=== PATIENT | female | born 1950 | race Two or more races ===

== ENCOUNTER 2018-09-05 14:28 | Inpatient (IN) | payer MEDICARE, MEDICAID ==
[~2018-09-05] VITALS: Ht 165.1 cm; Wt 102.6 kg
[2018-09-05] MEDS ORDERED: ONDANSETRON HCL 4MG/2ML INJ IV STA (15:14)
[2018-09-05] MEDS ORDERED: SODIUM CHLORIDE 0.9% 1,000 ML IV ONE (15:14)
[2018-09-05] MEDS ORDERED: MORPHINE SULFATE 4 MG/ML CPJ (NOT FOR IM USE) IV STA (15:14)
[2018-09-05] MEDS ORDERED: CEFTRIAXONE 1 G PREMIX 50 ML IV ONE (15:15)
[2018-09-05] MEDS ORDERED: SODIUM CHLORIDE 0.9% 1000ML BAG (SEPSIS BOLUS) IV ONE (15:15)
[2018-09-05] MEDS ORDERED: ACETAMINOPHEN 325MG TABLET PO STA (15:15)
[2018-09-05 15:28] LABS: HEMATOCRIT. 39.9 % (36.0-48.0); HEMOGLOBIN. 13.2 g/dL (12.0-16.0); MEAN CORPUSCULAR HEMOGLOBIN 27.9 pg (28.0-32.0); MEAN CORPUSCULAR VOLUME 84.4 fL (81.0-99.0); MEAN PLATELET VOLUME 7.8 fl (7.4-10.4); PLATELET 235 x1000/uL (130-400); RED BLOOD CELL COUNT 4.73 mill/uL (4.2-5.4); RED CELL DISTRIBUTION WIDTH 13.9 % (11.6-14.6)
[2018-09-05 15:33] LABS: PROTHROMBIN TIME 10.6 sec (9.6-11.0)
[2018-09-05 15:34] LABS: CHLORIDE 106 mEq/L (98-107)
[2018-09-05 15:55] LABS: PLATELET ESTIMATE NORMAL
[2018-09-05] MEDS ORDERED: METRONIDAZOLE 500 MG PREMIX 100 ML IV ONE (16:30)
[2018-09-05 16:58] LABS: CLARITY URINE CLEAR (CLEAR); COLOR URINE YELLOW (YELLOW); KETONES URINE TRACE (NEGATIVE); LEUKOCYTE ESTERASE URINE 1+ (NEGATIVE); NITRITE URINE POSITIVE (NEGATIVE); OCCULT BLOOD URINE NEGATIVE (NEGATIVE); PROTEIN URINE TRACE (NEGATIVE); SPECIFIC GRAVITY URINE 1.021 (1.005-1.030)
[2018-09-05] MEDS ORDERED: DIPHENHYDRAMINE 50MG/ML VIAL IV PRN (19:30)
[2018-09-05] MEDS ORDERED: ONDANSETRON HCL 4MG/2ML INJ IV PRN (19:30)
[2018-09-05 20:00] VITALS: BP 138/63
[2018-09-05] MEDS: HYDROMORPHONE HCL/PF 2MG/ML CPJ IV PRN (21:33)
[2018-09-05] MEDS: FAMOTIDINE 20MG/2ML VIAL IV SCH (22:00)
[2018-09-05] MEDS ORDERED: LEVOFLOXACIN 500MG PREMIX 100 ML IV SCH (22:00)
[2018-09-05] MEDS: SODIUM CHLORIDE 0.9% 1,000 ML IV SCH (22:21)
[2018-09-05] MEDS ORDERED: METO100T16 MT (23:00)
[2018-09-05] MEDS ORDERED: AMLO5TAB88 MT (23:00)
[2018-09-05] MEDS ORDERED: LISI-604 MT (23:01)
[2018-09-05] MEDS: LORAZEPAM 2MG/ML CPJ IV PRN (23:59)
[2018-09-06] VITALS: BP 133/67
[2018-09-06 04:00] VITALS: BP 148/47
[2018-09-06] MEDS: HYDROMORPHONE HCL/PF 2MG/ML CPJ IV PRN ×3 (07:12→23:23)
[2018-09-06 08:00] VITALS: BP 110/45
[2018-09-06 08:06] LABS: HEMATOCRIT. 40.5 % (36.0-48.0); HEMOGLOBIN. 13.2 g/dL (12.0-16.0); MEAN CORPUSCULAR HEMOGLOBIN 28.3 pg (28.0-32.0); MEAN CORPUSCULAR VOLUME 86.6 fL (81.0-99.0); MEAN PLATELET VOLUME 8.6 fl (7.4-10.4); PLATELET 222 x1000/uL (130-400); RED BLOOD CELL COUNT 4.68 mill/uL (4.2-5.4); RED CELL DISTRIBUTION WIDTH 14.1 % (11.6-14.6)
[2018-09-06] MEDS: METOPROLOL TARTRATE 25MG TABLET PO SCH ×2 (10:01→21:11)
[2018-09-06] MEDS: FAMOTIDINE 20MG/2ML VIAL IV SCH ×2 (10:01→21:11)
[2018-09-06 12:00] VITALS: BP 109/52
[2018-09-06] MEDS: SODIUM CHLORIDE 0.9% 1,000 ML IV SCH (12:33)
[2018-09-06] MEDS: LORAZEPAM 2MG/ML CPJ IV PRN (12:44)
[2018-09-06 13:08] LABS: PLATELET ESTIMATE NORMAL
[2018-09-06 16:00] VITALS: BP 109/43
[2018-09-06] MEDS: PIPERACILLIN/TAZ 3.375G PREMIX 50 ML IV SCH ×2 (16:47→21:12)
[2018-09-06 20:00] VITALS: BP 115/51
[2018-09-07] VITALS: BP 130/64
[2018-09-07] MEDS: HYDROMORPHONE HCL/PF 2MG/ML CPJ IV PRN ×3 (00:25→20:31)
[2018-09-07 04:00] VITALS: BP 124/53
[2018-09-07] MEDS: PIPERACILLIN/TAZ 3.375G PREMIX 50 ML IV SCH ×4 (04:37→21:55)
[2018-09-07] MEDS: SODIUM CHLORIDE 0.9% 1,000 ML IV SCH (04:58)
[2018-09-07 08:00] VITALS: BP 119/55
[2018-09-07] MEDS: METOPROLOL TARTRATE 25MG TABLET PO SCH ×2 (09:00→22:09)
[2018-09-07] MEDS: FAMOTIDINE 20MG/2ML VIAL IV SCH ×2 (09:10→21:55)
[2018-09-07 10:19] LABS: HEMATOCRIT. 38.1 % (36.0-48.0); HEMOGLOBIN. 12.2 g/dL (12.0-16.0); MEAN CORPUSCULAR HEMOGLOBIN 27.7 pg (28.0-32.0); MEAN CORPUSCULAR VOLUME 86.6 fL (81.0-99.0); MEAN PLATELET VOLUME 8.2 fl (7.4-10.4); PLATELET 239 x1000/uL (130-400); RED BLOOD CELL COUNT 4.39 mill/uL (4.2-5.4); RED CELL DISTRIBUTION WIDTH 14.4 % (11.6-14.6)
[2018-09-07 10:30] LABS: CHLORIDE 112 mEq/L (98-107)
[2018-09-07 13:02] LABS: PLATELET ESTIMATE NORMAL
[2018-09-07] MEDS: ACETAMINOPHEN 325MG TABLET PO PRN (13:45)
[2018-09-07 16:00] VITALS: BP 106/46
[2018-09-07 20:00] VITALS: BP 111/60
[2018-09-07] MEDS: DEXT 5%/0.45% NACL KCL 10MEQ/L 1,000 ML IV SCH (21:55)
[2018-09-08] VITALS (13 sets, daily range): BP systolic 119–178; BP diastolic 55–92
[2018-09-08] MEDS: PIPERACILLIN/TAZ 3.375G PREMIX 50 ML IV SCH ×4 (02:33→21:22)
[2018-09-08] MEDS: LORAZEPAM 2MG/ML CPJ IV PRN (04:45)
[2018-09-08 06:43] LABS: HEMOGLOBIN. 12.4 g/dL (12.0-16.0); MEAN CORPUSCULAR HEMOGLOBIN 28.2 pg (28.0-32.0); MEAN CORPUSCULAR VOLUME 86.7 fL (81.0-99.0); MEAN PLATELET VOLUME 8.1 fl (7.4-10.4); PLATELET 230 x1000/uL (130-400); RED BLOOD CELL COUNT 4.39 mill/uL (4.2-5.4); RED CELL DISTRIBUTION WIDTH 14.4 % (11.6-14.6)
[2018-09-08] MEDS: DEXT 5%/0.45% NACL KCL 10MEQ/L 1,000 ML IV SCH ×3 (06:43→14:33)
[2018-09-08] MEDS: HYDROMORPHONE HCL/PF 2MG/ML CPJ IV PRN (08:03)
[2018-09-08 08:17] LABS: PLATELET ESTIMATE NORMAL
[2018-09-08] MEDS: METOPROLOL TARTRATE 25MG TABLET PO SCH ×2 (08:34→21:23)
[2018-09-08] MEDS: FAMOTIDINE 20MG/2ML VIAL IV SCH ×2 (08:34→21:22)
[2018-09-08] MEDS ORDERED: DIATR MEGLU/DIATRIZOATE SOLN 30ML PO SCH (10:15)
[2018-09-08] MEDS ORDERED: HYDROMORPHONE HCL/PF 2MG/ML CPJ IV PRN (11:15)
[2018-09-08] MEDS ORDERED: NALOXONE HCL 1 MG/ML 2ML VIAL IV ONE (11:15)
[2018-09-08] MEDS: CLONIDINE 0.1MG TABLET PO PRN (12:18)
[2018-09-08] MEDS ORDERED: DIATR MEGLU/DIATRIZOATE SOLN 30ML PO NR (14:00)
[2018-09-08] MEDS ORDERED: IPRATROPIUM/ALBUTEROL 0.5-3(2.5)MG/3ML NEB HHN NR (18:24)
[2018-09-08] MEDS ORDERED: GUAIFENESIN 200MG/10ML SUGAR FREE UDC PO PRN (18:30)
[2018-09-08] MEDS ORDERED: METHYLPREDNISOLONE SOD SUCC 125 MG/2 ML VIAL IV SCH (18:30)
[2018-09-08] MEDS ORDERED: METHYLPREDNISOLONE SOD SUCC 40 MG/ML VIAL IV NR (18:45)
[2018-09-08 18:51] LABS: BG BASE EXCESS -6.2 mmol/L (-2.0-2.0); BG CARBOXYHEMOGLOBIN 0.5 % (0.5-1.5); BG DEOXYHEMOGLOBIN 1.8 % (0.0-5.0); BG FRACTION INSPIRED OXYGEN 100; BG HCO3 ACT 20.9 mmol/L (22.0-26.0); BG METHEMOGLOBIN 0.1 % (0.0-1.5); BG OXYGEN SATURATION 98.2 % (92.0-98.5); BG OXYHEMOGLOBIN 97.6 % (94.0-97.0); BG PCO2 47.6 mmHg (35.0-45.0); BG PH 7.261 (7.350-7.450); BG PO2 139.1 mmHg (75.0-100.0); BG SAMPLE SITE LEFT RADIAL; BG TOTAL HEMOGLOBIN 13.4 g/dL (12.0-18.0); BG VENT MODE MASK - NRB
[2018-09-08] MEDS ORDERED: LEVOFLOXACIN 500MG PREMIX 100 ML IV SCH ×2 (19:30→20:00)
[2018-09-08] MEDS: SODIUM BICARBONATE 100 MEQ in SODIUM CHLORIDE 0.45% 1,000 ML IV SCH (21:01)
[2018-09-08] MEDS: METRONIDAZOLE 500 MG PREMIX 100 ML IV SCH (22:13)
[2018-09-09] VITALS (27 sets, daily range): BP systolic 102–182; BP diastolic 35–125
[2018-09-09] MEDS: IPRATROPIUM/ALBUTEROL 0.5-3(2.5)MG/3ML NEB HHN SCH ×4 (00:23→20:26)
[2018-09-09] MEDS: PIPERACILLIN/TAZ 3.375G PREMIX 50 ML IV SCH ×4 (02:26→22:15)
[2018-09-09 05:16] LABS: HEMATOCRIT. 35.2 % (36.0-48.0); HEMOGLOBIN. 11.5 g/dL (12.0-16.0); MEAN CORPUSCULAR HEMOGLOBIN 28.2 pg (28.0-32.0); MEAN CORPUSCULAR VOLUME 86.4 fL (81.0-99.0); PLATELET 209 x1000/uL (130-400); RED BLOOD CELL COUNT 4.08 mill/uL (4.2-5.4); RED CELL DISTRIBUTION WIDTH 14.4 % (11.6-14.6)
[2018-09-09] MEDS: METRONIDAZOLE 500 MG PREMIX 100 ML IV SCH (05:31)
[2018-09-09 05:34] LABS: CHLORIDE 109 mEq/L (98-107)
[2018-09-09 05:40] LABS: PHOSPHORUS 2.4 mg/dL (2.5-4.9)
[2018-09-09] MEDS ORDERED: LIDOCAINE HCL/PF 1% 2ML VIAL ONE (08:04)
[2018-09-09] MEDS: FAMOTIDINE 20MG/2ML VIAL IV SCH ×2 (08:23→22:15)
[2018-09-09 08:38] LABS: BG BASE EXCESS -3.8 mmol/L (-2.0-2.0); BG CARBOXYHEMOGLOBIN 0.5 % (0.5-1.5); BG DEOXYHEMOGLOBIN 5.2 % (0.0-5.0); BG METHEMOGLOBIN 0.1 % (0.0-1.5); BG OXYGEN SATURATION 94.8 % (92.0-98.5); BG OXYHEMOGLOBIN 94.2 % (94.0-97.0); BG PCO2 32.5 mmHg (35.0-45.0); BG PH 7.408 (7.350-7.450); BG PO2 71.6 mmHg (75.0-100.0); BG SAMPLE SITE RIGHT RADIAL; BG TOTAL HEMOGLOBIN 11.9 g/dL (12.0-18.0); BG VENT MODE NASAL CANNULA
[2018-09-09] MEDS: SODIUM BICARBONATE 100 MEQ in SODIUM CHLORIDE 0.45% 1,000 ML IV SCH ×2 (08:53→18:53)
[2018-09-09] MEDS: LORAZEPAM 2MG/ML CPJ IV PRN (09:10)
[2018-09-09] MEDS: METOPROLOL TARTRATE 25MG TABLET PO SCH ×2 (09:16→22:15)
[2018-09-09] MEDS ORDERED: LIDOCAINE HCL 1% 20ML VIAL (Pyxis) INJ ONE ×2 (09:48→13:11)
[2018-09-09] MEDS ORDERED: SODIUM BICARBONATE 4% (2.4MEQ) 5ML VIAL IV ONE ×2 (09:49→13:11)
[2018-09-09 10:29] LABS: PLATELET ESTIMATE NORMAL
[2018-09-09] MEDS: DEXT 5%/0.45% NACL KCL 10MEQ/L 1,000 ML IV SCH ×2 (12:16→22:16)
[2018-09-09] MEDS: HYDROMORPHONE HCL/PF 2MG/ML CPJ IV PRN (13:02)
[2018-09-09] MEDS ORDERED: HYDROMORPHONE HCL/PF 2MG/ML CPJ IV ONE (13:45)
[2018-09-09] MEDS ORDERED: HYDROMORPHONE HCL/PF 2MG/ML CPJ IV NR (14:30)
[2018-09-09] MEDS: ACETAMINOPHEN 325MG TABLET PO PRN (17:02)
[2018-09-10] VITALS: BP 144/70
[2018-09-10] MEDS: IPRATROPIUM/ALBUTEROL 0.5-3(2.5)MG/3ML NEB HHN SCH ×4 (02:15→21:54)
[2018-09-10] MEDS: LORAZEPAM 2MG/ML CPJ IV PRN (03:04)
[2018-09-10] MEDS: PIPERACILLIN/TAZ 3.375G PREMIX 50 ML IV SCH ×4 (03:45→21:00)
[2018-09-10 04:00] VITALS: BP 149/65
[2018-09-10] MEDS: HYDROMORPHONE HCL/PF 2MG/ML CPJ IV PRN (06:11)
[2018-09-10 08:00] VITALS: BP 142/65
[2018-09-10] MEDS: METOPROLOL TARTRATE 25MG TABLET PO SCH ×2 (09:13→21:01)
[2018-09-10] MEDS: FAMOTIDINE 20MG/2ML VIAL IV SCH ×2 (09:13→21:00)
[2018-09-10 12:10] VITALS: BP 140/68
[2018-09-10 15:53] VITALS: BP 152/67
[2018-09-10 20:00] VITALS: BP 139/72
[2018-09-10] MEDS: DEXT 5%/0.45% NACL KCL 10MEQ/L 1,000 ML IV SCH (21:00)
[2018-09-11] VITALS: BP 134/69
[2018-09-11] MEDS: HYDROMORPHONE HCL/PF 2MG/ML CPJ IV PRN ×3 (01:17→20:46)
[2018-09-11] MEDS: IPRATROPIUM/ALBUTEROL 0.5-3(2.5)MG/3ML NEB HHN SCH ×3 (03:03→21:39)
[2018-09-11 04:00] VITALS: BP 135/70
[2018-09-11 08:00] VITALS: BP 153/70
[2018-09-11] MEDS: PIPERACILLIN/TAZ 3.375G PREMIX 50 ML IV SCH ×3 (08:49→20:53)
[2018-09-11] MEDS: FAMOTIDINE 20MG/2ML VIAL IV SCH ×2 (08:50→20:53)
[2018-09-11] MEDS: METOPROLOL TARTRATE 25MG TABLET PO SCH ×2 (08:50→22:58)
[2018-09-11 12:00] VITALS: BP 129/97
[2018-09-11] MEDS: ENOXAPARIN 40MG/0.4ML SYR SUBCUT SCH (13:26)
[2018-09-11] MEDS: DEXT 5%/0.45% NACL KCL 10MEQ/L 1,000 ML IV SCH (14:57)
[2018-09-11 16:22] VITALS: BP 136/62
[2018-09-11 20:00] VITALS: BP 127/62
[2018-09-12] VITALS: BP 156/67
[2018-09-12] MEDS: IPRATROPIUM/ALBUTEROL 0.5-3(2.5)MG/3ML NEB HHN SCH ×4 (03:15→19:48)
[2018-09-12] MEDS: PIPERACILLIN/TAZ 3.375G PREMIX 50 ML IV SCH ×4 (03:30→20:28)
[2018-09-12] MEDS: DEXT 5%/0.45% NACL KCL 10MEQ/L 1,000 ML IV SCH (03:32)
[2018-09-12 04:00] VITALS: BP 141/56
[2018-09-12 08:00] VITALS: BP 156/66
[2018-09-12] MEDS: FAMOTIDINE 20MG/2ML VIAL IV SCH ×2 (09:56→20:28)
[2018-09-12] MEDS: METOPROLOL TARTRATE 25MG TABLET PO SCH ×2 (10:00→20:27)
[2018-09-12] MEDS: ENOXAPARIN 40MG/0.4ML SYR SUBCUT SCH (10:01)
[2018-09-12 12:00] VITALS: BP 145/54
[2018-09-12] MEDS ORDERED: LOPERAMIDE HCL 2MG CAPSULE PO PRN (14:30)
[2018-09-12 16:00] VITALS: BP 128/74
[2018-09-12 20:00] VITALS: BP 132/68
[2018-09-13] VITALS: BP 169/85
[2018-09-13] MEDS: CLONIDINE 0.1MG TABLET PO PRN ×2 (00:12→00:14)
[2018-09-13] MEDS: IPRATROPIUM/ALBUTEROL 0.5-3(2.5)MG/3ML NEB HHN SCH ×4 (00:54→20:27)
[2018-09-13 04:00] VITALS: BP 147/68
[2018-09-13] MEDS: PIPERACILLIN/TAZ 3.375G PREMIX 50 ML IV SCH ×4 (04:09→20:43)
[2018-09-13] MEDS: DEXT 5%/0.45% NACL KCL 10MEQ/L 1,000 ML IV SCH (06:41)
[2018-09-13 06:53] LABS: HEMATOCRIT. 32.3 % (36.0-48.0); HEMOGLOBIN. 10.8 g/dL (12.0-16.0); MEAN CORPUSCULAR HEMOGLOBIN 27.8 pg (28.0-32.0); MEAN CORPUSCULAR VOLUME 83.5 fL (81.0-99.0); PLATELET 221 x1000/uL (130-400); RED BLOOD CELL COUNT 3.87 mill/uL (4.2-5.4); RED CELL DISTRIBUTION WIDTH 14.3 % (11.6-14.6)
[2018-09-13 06:58] LABS: CHLORIDE 107 mEq/L (98-107)
[2018-09-13 08:00] VITALS: BP 152/79
[2018-09-13] MEDS ORDERED: POTASSIUM CHLORIDE 20MEQ TABLET SR PO SCH (08:00)
[2018-09-13 09:26] LABS: PLATELET ESTIMATE NORMAL
[2018-09-13] MEDS: METOPROLOL TARTRATE 25MG TABLET PO SCH ×2 (09:41→20:45)
[2018-09-13] MEDS ORDERED: POTASSIUM CHLORIDE INJ 40 MEQ in DEXT 5% WATER 500 ML IV SCH (10:00)
[2018-09-13] MEDS: FAMOTIDINE 20MG/2ML VIAL IV SCH ×2 (10:29→20:43)
[2018-09-13] MEDS: ENOXAPARIN 40MG/0.4ML SYR SUBCUT SCH (10:33)
[2018-09-13 12:00] VITALS: BP 154/64
[2018-09-13] MEDS ORDERED: POTASSIUM CHLORIDE 20MEQ TABLET SR PO NR ×3 (15:45→22:00)
[2018-09-13 16:00] VITALS: BP 148/72
[2018-09-13 20:00] VITALS: BP 120/81
[2018-09-14] VITALS: BP 132/54
[2018-09-14] MEDS: DEXT 5%/0.45% NACL KCL 10MEQ/L 1,000 ML IV SCH ×2 (00:19→20:46)
[2018-09-14] MEDS: IPRATROPIUM/ALBUTEROL 0.5-3(2.5)MG/3ML NEB HHN SCH ×4 (02:24→21:37)
[2018-09-14 04:00] VITALS: BP 134/74
[2018-09-14] MEDS: METOPROLOL TARTRATE 25MG TABLET PO SCH ×2 (08:09→20:47)
[2018-09-14] MEDS: FAMOTIDINE 20MG/2ML VIAL IV SCH ×2 (08:10→20:47)
[2018-09-14] MEDS: ENOXAPARIN 40MG/0.4ML SYR SUBCUT SCH (08:10)
[2018-09-14 20:00] VITALS: BP 150/65
[2018-09-15] VITALS: BP 154/67
[2018-09-15] MEDS: IPRATROPIUM/ALBUTEROL 0.5-3(2.5)MG/3ML NEB HHN SCH ×2 (02:25→09:05)
[2018-09-15 04:00] VITALS: BP 166/77
[2018-09-15 07:25] LABS: BASOPHILS % 0.3 % (0.0-2.0); EOSINOPHILS % 1.6 % (0.0-5.0); HEMATOCRIT. 33.2 % (36.0-48.0); LYMPHOCYTES % 9.9 % (20.0-50.0); MEAN CORPUSCULAR HEMOGLOBIN 27.8 pg (28.0-32.0); MEAN CORPUSCULAR VOLUME 83.9 fL (81.0-99.0); MEAN PLATELET VOLUME 8.6 fl (7.4-10.4); MONOCYTES % 8.6 % (2.0-8.0); NEUTROPHILS % 79.6 % (40.0-76.0); PLATELET 327 x1000/uL (130-400); RED BLOOD CELL COUNT 3.96 mill/uL (4.2-5.4); RED CELL DISTRIBUTION WIDTH 14.5 % (11.6-14.6)
[2018-09-15 07:50] LABS: CHLORIDE 108 mEq/L (98-107)
[2018-09-15 08:00] VITALS: BP 107/53
[2018-09-15] MEDS: METOPROLOL TARTRATE 25MG TABLET PO SCH ×2 (09:00→20:57)
[2018-09-15] MEDS: FAMOTIDINE 20MG/2ML VIAL IV SCH ×2 (09:44→20:57)
[2018-09-15] MEDS: ENOXAPARIN 30MG/0.3ML SYR SUBCUT SCH ×2 (09:44→20:57)
[2018-09-15 12:00] VITALS: BP 155/86
[2018-09-15] MEDS ORDERED: IPRATROPIUM/ALBUTEROL 0.5-3(2.5)MG/3ML NEB HHN PRN (13:15)
[2018-09-15 16:00] VITALS: BP 153/69
[2018-09-15] MEDS: PIPERACILLIN/TAZOBACTAM 3.375 G in DEXT 5% WATER 100 ML IV SCH (18:28)
[2018-09-15 20:00] VITALS: BP 141/67
[2018-09-16] VITALS: BP 154/64
[2018-09-16] MEDS: DEXT 5%/0.45% NACL KCL 10MEQ/L 1,000 ML IV SCH ×2 (00:58→15:59)
[2018-09-16] MEDS: PIPERACILLIN/TAZOBACTAM 3.375 G in DEXT 5% WATER 100 ML IV SCH ×4 (00:58→20:37)
[2018-09-16 04:00] VITALS: BP 144/73
[2018-09-16 08:00] VITALS: BP 146/78
[2018-09-16] MEDS: ENOXAPARIN 30MG/0.3ML SYR SUBCUT SCH ×2 (09:52→22:59)
[2018-09-16] MEDS: METOPROLOL TARTRATE 25MG TABLET PO SCH ×2 (09:52→22:59)
[2018-09-16] MEDS: FAMOTIDINE 20MG/2ML VIAL IV SCH ×2 (09:52→22:59)
[2018-09-16 12:00] VITALS: BP 148/81
[2018-09-16 16:00] VITALS: BP 130/73
[2018-09-16 20:48] VITALS: BP 156/72
[2018-09-17] VITALS (7 sets, daily range): BP systolic 118–155; BP diastolic 52–76
[2018-09-17] MEDS: PIPERACILLIN/TAZOBACTAM 3.375 G in DEXT 5% WATER 100 ML IV SCH ×4 (01:56→17:39)
[2018-09-17 05:40] LABS: BASOPHILS % 0.2 % (0.0-2.0); EOSINOPHILS % 1.5 % (0.0-5.0); HEMATOCRIT. 33.1 % (36.0-48.0); HEMOGLOBIN. 10.9 g/dL (12.0-16.0); LYMPHOCYTES % 12.1 % (20.0-50.0); MEAN CORPUSCULAR HEMOGLOBIN 27.7 pg (28.0-32.0); MEAN CORPUSCULAR VOLUME 84.1 fL (81.0-99.0); MONOCYTES % 8.3 % (2.0-8.0); NEUTROPHILS % 77.9 % (40.0-76.0); PLATELET 413 x1000/uL (130-400); RED BLOOD CELL COUNT 3.94 mill/uL (4.2-5.4); RED CELL DISTRIBUTION WIDTH 14.5 % (11.6-14.6)
[2018-09-17 06:28] LABS: CHLORIDE 106 mEq/L (98-107)
[2018-09-17] MEDS: FAMOTIDINE 20MG/2ML VIAL IV SCH (09:15)
[2018-09-17] MEDS: METOPROLOL TARTRATE 25MG TABLET PO SCH (09:15)
[2018-09-17] MEDS: ENOXAPARIN 30MG/0.3ML SYR SUBCUT SCH (09:16)
[2018-09-17] MEDS: DEXT 5%/0.45% NACL KCL 10MEQ/L 1,000 ML IV SCH (12:09)
== END 2018-09-17 21:20 | disposition home health service (06) | DRG 871 ==
LOC: ER 14:28 → ENRESERV 17:45 → 6EST 20:49 → MICUSO 09-08 20:34 → 6EST 09-09 23:55
PROVIDERS: ADMIT Internal Medicine; ATTEND Internal Medicine
PROC: 0F9030Z Drainage of Liver with Drainage Device, Percutaneous Approach (ICD-10-PCS; principal; 2018-09-09)
PROC: 0F9430Z Drainage of Gallbladder with Drainage Device, Percutaneous Approach (ICD-10-PCS; 2018-09-09)
PROC: 0FP0X0Z Removal of Drainage Device from Liver, External Approach (ICD-10-PCS; 2018-09-17)
DX: A41.9 Sepsis, unspecified organism (principal); K75.0 Abscess of liver; J96.00 Acute respiratory failure, unspecified whether with hypoxia or hypercapnia; K83.1 Obstruction of bile duct; N39.0 Urinary tract infection, site not specified; N17.9 Acute kidney failure, unspecified; K57.32 Diverticulitis of large intestine without perforation or abscess without bleeding; I10 Essential (primary) hypertension; E66.01 Morbid (severe) obesity due to excess calories; I27.20 Pulmonary hypertension, unspecified; F41.9 Anxiety disorder, unspecified; K43.9 Ventral hernia without obstruction or gangrene; E87.6 Hypokalemia; K52.9 Noninfective gastroenteritis and colitis, unspecified; K80.20 Calculus of gallbladder without cholecystitis without obstruction; K57.30 Diverticulosis of large intestine without perforation or abscess without bleeding; K76.0 Fatty (change of) liver, not elsewhere classified; J45.909 Unspecified asthma, uncomplicated; Z87.442 Personal history of urinary calculi; Z98.51 Tubal ligation status; Z79.899 Other long term (current) drug therapy; Z68.37 Body mass index [BMI] 37.0-37.9, adult
CPT/HCPCS: 36415; 36600; 47537; 71045; 74176; 76705; 76942; 78227; 80048; 82375; 82805; 83036; 83605; 83735; 84100; 84484; 87077; 87186; 93005; 93306; 93970; 94640; 96365; 96366; 96367; 96375; 97116; 97162; 97530; 99291; A9537; C1729; C1769; C1893; J0696; J1170; J1200; J1650; J1956; J2060; J2270; J2310; J2405; J2543; J2920; J3480; J3490; J7030; J7060; J7620; L8514; Q9963

== ENCOUNTER → 2018-10-01 | Outpatient (CLI) | payer MEDICARE ==
[~2018-10-01] MED LIST: AMLO5TAB88 MT; BARIUM SULFATE 450ML ORAL SUSP ONE; IOHEXOL-300 100 ML BOTTLE ONE; LISI-604 MT; METO100T16 MT
== END | disposition home or self-care (01) ==
LOC: CT 07:49
PROVIDERS: ATTEND Surgery
DX: K76.0 Fatty (change of) liver, not elsewhere classified (principal); N26.1 Atrophy of kidney (terminal); K42.9 Umbilical hernia without obstruction or gangrene; J90 Pleural effusion, not elsewhere classified; Z90.49 Acquired absence of other specified parts of digestive tract
CPT/HCPCS: 74177; Q9967

== ENCOUNTER → 2018-10-08 | Outpatient (CLI) | payer MEDICARE ==
[~2018-10-08] MED LIST changes: -BARIUM SULFATE 450ML ORAL SUSP ONE; -IOHEXOL-300 100 ML BOTTLE ONE
[2018-10-08 14:20] LABS: BASOPHILS % 0.6 % (0.0-2.0); EOSINOPHILS % 2.1 % (0.0-5.0); HEMATOCRIT. 37.9 % (36.0-48.0); HEMOGLOBIN. 12.6 g/dL (12.0-16.0); LYMPHOCYTES % 29.9 % (20.0-50.0); MEAN CORPUSCULAR HEMOGLOBIN 28.2 pg (28.0-32.0); MEAN CORPUSCULAR VOLUME 84.6 fL (81.0-99.0); MEAN PLATELET VOLUME 7.5 fl (7.4-10.4); MONOCYTES % 8.8 % (2.0-8.0); NEUTROPHILS % 58.6 % (40.0-76.0); PLATELET 373 x1000/uL (130-400); RED BLOOD CELL COUNT 4.48 mill/uL (4.2-5.4); RED CELL DISTRIBUTION WIDTH 14.8 % (11.6-14.6)
[2018-10-08 14:26] LABS: CHLORIDE 104 mEq/L (98-107)
[2018-10-08 17:11] LABS: CLARITY URINE CLEAR (CLEAR); COLOR URINE YELLOW (YELLOW); KETONES URINE TRACE (NEGATIVE); LEUKOCYTE ESTERASE URINE 1+ (NEGATIVE); NITRITE URINE NEGATIVE (NEGATIVE); OCCULT BLOOD URINE NEGATIVE (NEGATIVE); PH URINE 5.5 (4.5-8.0); PROTEIN URINE NEGATIVE (NEGATIVE); SPECIFIC GRAVITY URINE 1.025 (1.005-1.030)
== END | disposition home or self-care (01) ==
LOC: LAB 13:31
PROVIDERS: ATTEND Internal Medicine
DX: Z01.818 Encounter for other preprocedural examination (principal); K81.9 Cholecystitis, unspecified
CPT/HCPCS: 36415

== ENCOUNTER → 2018-10-09 | Outpatient (CLI) | payer MEDICARE | END | disposition home or self-care (01) | LOC: RAD 13:53 | PROVIDERS: ATTEND Internal Medicine | DX: Z01.818 Encounter for other preprocedural examination (principal); J98.11 Atelectasis; I51.7 Cardiomegaly | CPT/HCPCS: 71045; 93005 ==

== ENCOUNTER 2018-10-17 05:32 | Day surgery (SDC) | payer MEDICARE ==
[~2018-10-17] VITALS: Ht 165.1 cm; Wt 85.3 kg
[2018-10-17] MEDS ORDERED: LACTATED RINGERS 1,000 ML IV SCH (06:00)
[2018-10-17] MEDS ORDERED: MIDAZOLAM HCL 2 MG/2 ML VIAL ONE (06:32)
[2018-10-17] MEDS ORDERED: SUCCINYLCHOLINE CHLORIDE 200MG/10ML IV ONE (06:32)
[2018-10-17] MEDS ORDERED: FENTANYL CITRATE/PF 50MCG/ML 2ML VIAL ONE (06:32)
[2018-10-17] MEDS ORDERED: LIDOCAINE HCL/PF 1% 10 MG/ML 5ML VIAL ONE (06:33)
[2018-10-17] MEDS ORDERED: EPHEDRINE SULFATE 50MG/ML VIAL ONE (06:33)
[2018-10-17] MEDS ORDERED: SODIUM CHLORIDE 0.9% 10ML VIAL ONE ×4 (06:33→08:02)
[2018-10-17] MEDS ORDERED: PROPOFOL 200MG/20ML VIAL IV ONE (06:33)
[2018-10-17] MEDS ORDERED: DEXAMETHASONE 4MG/ML 1ML VIAL ONE (06:33)
[2018-10-17] MEDS ORDERED: CEFAZOLIN SODIUM 1000MG/VIAL ONE ×2 (06:37→07:59)
[2018-10-17] MEDS ORDERED: ROCURONIUM BROMIDE 10MG/ML VIAL 5ML IV ONE (06:39)
[2018-10-17] MEDS ORDERED: METO25TA6 PO (06:49)
[2018-10-17] MEDS ORDERED: SKIN ADHESIVE 0.7 GM EA TOP ONE ×2 (06:51→06:52)
[2018-10-17] MEDS ORDERED: BUPIVACAINE HCL 0.5% (5MG/ML) 50ML ONE (06:52)
[2018-10-17] MEDS ORDERED: ONDANSETRON HCL 4MG/2ML INJ ONE (07:56)
[2018-10-17] MEDS ORDERED: PHENYLEPHRINE HCL 10 MG/ML 1ML (IV VIAL) IV ONE (08:02)
[2018-10-17] MEDS ORDERED: NEOSTIGMINE METHYLSULFATE 1MG/ML 10 ML VIAL ONE (08:19)
[2018-10-17] MEDS ORDERED: GLYCOPYRROLATE 0.2 MG/ML 2ML VIAL ONE (08:19)
[2018-10-17] MEDS ORDERED: FLUMAZENIL 0.1 MG/ML 5ML VIAL IV ONE (09:01)
[2018-10-17] MEDS: HYDROMORPHONE HCL/PF 2MG/ML CPJ IV PRN ×4 (09:35→09:58)
[2018-10-17] MEDS ORDERED: HYDROCODONE/ACETAMINOPHEN 5/325MG TABLET PO PRN (10:30)
[2018-10-17 10:41] VITALS: BP 140/58
== END 2018-10-17 11:40 | disposition home or self-care (01) ==
LOC: OR 05:32
PROVIDERS: ATTEND Surgery
DX: K80.64 Calculus of gallbladder and bile duct with chronic cholecystitis without obstruction (principal); I10 Essential (primary) hypertension; E66.9 Obesity, unspecified; Z98.890 Other specified postprocedural states; Z79.899 Other long term (current) drug therapy; Z68.31 Body mass index [BMI] 31.0-31.9, adult; Z82.49 Family history of ischemic heart disease and other diseases of the circulatory system
CPT/HCPCS: 47562; 73706; 88304; J0330; J0690; J1100; J1170; J2250; J2370; J2405; J2704; J2710; J3010; J3490; J7030

== ENCOUNTER → 2018-10-25 | Outpatient (CLI) | payer MEDICARE ==
[2018-10-25] VITALS (12 sets, daily range): BP systolic 148–164; BP diastolic 71–89
[~2018-10-25] VITALS: Ht 160 cm; Wt 86.2 kg
[~2018-10-25] MED LIST changes: +FENTANYL CITRATE/PF 50MCG/ML 2ML VIAL IV ONE; +FENTANYL CITRATE/PF 50MCG/ML 2ML VIAL ONE; +IOHEXOL-300 50 ML BOTTLE IV ONE; +LIDOCAINE HCL 1% 20ML VIAL (Pyxis) INJ ONE; -METO100T16 MT; +METO25TA6 PO; +SODIUM BICARBONATE 4% (2.4MEQ) 5ML VIAL IV ONE
== END | disposition home or self-care (01) ==
LOC: CT 08:02
PROVIDERS: ATTEND Surgery
DX: K65.1 Peritoneal abscess (principal); I10 Essential (primary) hypertension; F41.9 Anxiety disorder, unspecified; E66.9 Obesity, unspecified; Z68.33 Body mass index [BMI] 33.0-33.9, adult; Z79.899 Other long term (current) drug therapy; Z82.49 Family history of ischemic heart disease and other diseases of the circulatory system
CPT/HCPCS: 49423; 74176; 75894; 77012; C1729; C1769; J3490; Q9967; 49180; J3010; L8514